=== PATIENT | female | born 1940 | race Caucasian/White ===

== ENCOUNTER 2018-08-26 12:56 | Emergency (ER) | payer MEDICARE, MEDICAID ==
[2018-08-26 13:14] VITALS: BP 166/81; PULSE 67; RESP 20; TEMP 98.3; O2SAT 96
--- NOTE | 2018-08-26 13:59 | C.PDOC ---
History Of Present Illness 77 year old female presents to the emergency department status-post tripping on an uneven sidewalk, injuring her left knee. Patient reports difficulty with ambulating and abrasions to both hands. Patient denies head injury or LOC. Time Seen by Provider: 08/26/18 13:10 Chief Complaint (Nursing): Lower Extremity Problem/Injury History Per: Patient History/Exam Limitations: no limitations Onset/Duration Of Symptoms: Hrs Current Symptoms Are (Timing): Still Present - Knee Description Of Injury: Fell Currently Unable To: Bear Weight Past Medical History Reviewed: Historical Data, Nursing Documentation, Vital Signs Vital Signs: Last Vital Signs Temp 98.3 F 08/26/18 13:03 Pulse 67 08/26/18 13:03 Resp 20 08/26/18 13:03 BP 166/81 H 08/26/18 13:03 Pulse Ox 96 08/26/18 13:03 Primary Care Provider: Michel Jerez - Medical History PMH: HTN, Hypercholesterolemia, Hypothyroidism Denies: Chronic Kidney Disease Surgical History: No Surg Hx Family History: States: No Known Family Hx - Social History Hx Alcohol Use: No Hx Substance Use: No - Immunization History Hx Tetanus Toxoid Vaccination: No Hx Influenza Vaccination: Yes (04/2018) Hx Pneumococcal Vaccination: Yes (2018) Review Of Systems Except As Marked, All Systems Reviewed And Found Negative. Constitutional: Negative for: Fever, Chills Cardiovascular: Negative for: Chest Pain Respiratory: Negative for: Cough, Shortness of Breath Gastrointestinal: Negative for: Nausea, Vomiting, Diarrhea Musculoskeletal: Positive for: Leg Pain (left knee) Physical Exam - Physical Exam Appears: Non-toxic, No Acute Distress Skin: Normal Color, Warm, Dry, Other (superficial excoriation/abrasion to the infrapatellar aspect of the left knee. Erythema to the base of the palmar aspects of bilateral hands. ) Head: Atraumatic, Normacephalic Neck: Normal, Supple Chest: Symmetrical Extremity: No Normal ROM (ROM of left knee limited due to pain. Full ROM of bilateral hands. ), Tenderness (Tenderness to palpation to the anterior left kn ee. NO bony tenderness of hands bilaterally. ), No Deformity (to left knee), No Swelling (to left knee) Neurological/Psych: Oriented x3, Normal Speech, Normal Cognition Gait: Steady ED Course And Treatment O2 Sat by Pulse Oximetry: 96 (RA) Pulse Ox Interpretation: Normal - Other Rad XR Left Knee X-Ray: Interpreted by Me, Viewed By Me Interpretation: Arthritic changes of the left knee. Negative for fractures and dislocations. Progress Note: Plan: Motrin 600mg PO. XR Left Knee. Left knee placed in clint wrap, wound cleaned with bacitracin and bandaid applied. Patient to f/u with PMD. Disposition Counseled Patient/Family Regarding: Diagnosis, Need For Followup, Rx Given - Disposition Disposition: HOME/ ROUTINE Disposition Time: 14:08 Condition: STABLE Additional Instructions: Apply ICE to area Tylenol or advil for pain Follow up with ur doctor Return to ER if worse Instructions: Contusion (DC), Knee Sprain (DC) Forms: [facility] ([place]e) - Clinical Impression Clinical Impression: Contusion of knee, left, Abrasion, left knee, initial encounter, Contusion of multiple sites of hand and fingers - PA / ASSISTED LIVING NURSING DIRECTOR / Resident Statement MD/DO has reviewed & agrees with the documentation as recorded. - Scribe Statement The provider has reviewed the documentation as recorded by the Scribe (Diego Vilchis) All medical record entries made by the Scribe were at my direction and personally dictated by me. I have reviewed the chart and agree that the record accurately reflects my personal performance of the history, physical exam, medical decision making, and the department course for this patient. I have also personally directed, reviewed, and agree with the discharge instructions and disposition.
--- NOTE | 2018-08-26 14:35 | RAD ---
PROCEDURE: Left Knee Radiographs. Three views. HISTORY: pain, fall, bruising COMPARISON: None available. FINDINGS: BONES: No acute displaced fracture. JOINTS: No dislocation. JOINT EFFUSION: Small suprapatellar joint effusion. OTHER FINDINGS: None. IMPRESSION: Small suprapatellar joint effusion. No acute displaced fracture or dislocation identified. If symptoms persist, or if there is continued clinical concern, x-ray follow-up in 7-10 days should be considered.
== END 2018-08-26 14:27 | disposition home or self-care (01) ==
LOC: C.ER 12:56
DX: S80.02XA Contusion of left knee, initial encounter (principal); S60.222A Contusion of left hand, initial encounter; S60.221A Contusion of right hand, initial encounter; S60.00XA Contusion of unspecified finger without damage to nail, initial encounter; S80.212A Abrasion, left knee, initial encounter; W01.0XXA Fall on same level from slipping, tripping and stumbling without subsequent striking against object, initial encounter; Y92.480 Sidewalk as the place of occurrence of the external cause